=== PATIENT | male | born 1945 | race Caucasian/White ===

== ENCOUNTER 2016-08-05 16:05 | Emergency (ER) | payer MEDICARE, OTHER ==
[~2016-08-05] VITALS: Ht 177.8 cm; Wt 85.0 kg
[~2016-08-05 16:05] MED LIST: AC325T PO; HYDR-3702 PO; IBP800T PO; IBUP-1772 PO; LCT30U PO; OXC5T PO; PHEN100C5 PO; PHN100C PO; TRL10C90 TOP
--- OUTSIDE RECORDS SUMMARY | 2016-08-05 16:08 | XMS REPORT | Continuity of Care Document ---
Author Author [facility] Address Unknown Phone Unavailable Care Team Providers Care Senior Tableau Developer Name Role Phone ANABEL HANDY MD PCP [phone] Insurance Providers Payer Name Policy Number Subscriber Name Relationship Medicare A And B [id number] Kelsey Briseno 18 Self / Same As Patient Advance Directives Directive Response Recorded Date/Time Advanced Directives No 01/01/16 3:33pm Type Durable Power of Bridge Tender 01/01/16 3:33pm Chief Complaint and Reason for Visit Chief Complaint Pain Reason for Visit [id number] Problems Active Problems Medical Problem Onset Date Status Breakthrough seizure 02/10/2015 Acute Dislocated shoulder 10/29/2014 Resolved Head contusion 10/29/2014 Resolved Hill Sachs deformity, left Unknown Acute Laceration of head 10/29/2014 Resolved Noncompliance w/medication treatment due to intermit use of medication ~2014 Acute Seizure disorder 10/29/2014 Chronic Serum ammonia increased Unknown Acute Medications Current Home Medications Medication Dose Units Route Directions Days/Qty Instructions Start Date Phenytoin Sodium Extended 100 Mg 100 Mg ORAL Three Times A Day 02/10 Ibuprofen (Motrin) 600 Mg 600 Mg ORAL Three Times A Day as needed for Pain 0 12/14/15 Acetaminophen (Tylenol) 325 Mg 650 Mg ORAL Every 6 Hours as needed for Pain 0 12/14/15 Lactulose 10 Gm/15 Ml 20 Gm ORAL Daily 1 Take daily. May hold if having > 3 BM in 24 hours. 12/14/15 Trolamine Salicylate (Aspercreme 10%) 85 Gm 1 Applic TOPICAL Four Times Daily 1 12/14/15 Acetaminophen/Hydrocodone Bitart 1 Each 1 Tab ORAL Every 3 Hours as needed for Pain 30 01/01/16 Past Home Medications Medication Directions Ordered Status Phenytoin Sodium Extended 100 Mg Capsule, 200 Mg Oral Twice A Day 10/29/14 Discontinued Phenytoin Sodium (Phenytoin Er) 100 Mg Cap, 100 Mg Oral Every 8 Hrs On Schedule 10/30/14 Discontinued Oxycodone Hcl (Roxicodone) 5 Mg Tab, 5 Mg Oral Every 4HRS as needed for Pain 10/30/14 Discontinued Ibuprofen (Motrin) 800 Mg Tab, 800 Mg Oral Three Times A Day as needed for Pain 10/30/14 Discontinued Phenytoin Sodium Extended 100 Mg Capsule, 100 Mg Oral Three Times A Day 02/10 Discontinued Social History Social History Problem Response Recorded Date/Time Onset Date Status Exposure to occupational hazards No 12/12/2015 2:17am Query Response Start Date Stop Date Smoking Status Current every day smoker Hospital Discharge Instructions No hospital discharge instructions. Plan of Care Discharge Date 01/01/16 5:20pm Disposition 01 HOME OR SELF-CARE Condition at Discharge Stable Prescriptions See Medication Section Referrals ANABEL HANDY MD - Additional Instructions/Education Follow up with your orthopedic doctor - call tomorrow. ED ZAN if any worse. Use sling as most comfortable. [place] as directed. Some of your test results may not be complete prior to your leaving the Emergency Department. The Emergency Department is not authorized to give test results over the phone. Please contact the doctor's office listed in this packet of information for your final results. Follow up with your primary care physician or return to the Emergency Department for worsening or worrisome symptoms. * Emergency Department phone number: [phone], x [phone]* MEDICAL RECORD If you need copies of your X-rays, call [phone]. If you need copies of your medical record, including lab results, a signed authorization for release of records will be required. A telephone call for release of Health Information is not allowed. BILLING Billing can sometimes be confusing and frustrating. To help avoid confusion in the future, please take a moment to acquaint yourself with the billing parties for services. SERVICE BILLING LIBERTARIAN Emergency Room Services [facility] Physician Services [facility] Patients will receive bills for services from the appropriate provider. If you have any questions about your [facility] bill, our staff will be happy to assist you. Please call [phone], and ask for the billing department. THANK YOU for choosing [facility] as your emergency care provider! Care Plan and Goals ~~Discharge Care Plan~~ Problem: Contusion, pain to affected area, fall. Goal: Decreased contusion and pain to affected area. Instructions: Apply ice to area for 15-20 minutes every 3-4 hours. Elevate extremity above the level of the heart, if applicable. Splint area with pillow or blanket to any chest/abdomen injuries. Use incentive spirometry as directed. Take at least 10 deep breaths per hour. Take medication(s) as directed. Follow up with regular physician or specialist as directed. Exercise as tolerated or directed by physician. Functional Status No functional status results. Allergies, Adverse Reactions, Alerts No known allergies. Immunizations No immunization records. Vital Signs Acute Vital Signs Vital Response Date/Time Temperature (Fahrenheit) 98.1 01/01/2016 3:33pm Pulse 80 bpm 01/01/2016 5:19pm Respirations 20 01/01/2016 5:19pm Height 5 ft 10 in Weight 167 lb Body Mass Index 24.0 kg/m^2 Results Laboratory Results Test Name Result Units Flags Reference Collection Date/Time Result Date/ Time Comments White Blood Count 7.37 10^3uL 4.0-11.0 12/13/2015 1:50pm 12/13/2015 1: 59pm Red Blood Count 3.69 10^6uL L 4.50-5.50 12/13/2015 1:50pm 12/13/2015 1: 59pm Hemoglobin 13.3 g/dL L 13.5-17.0 12/13/2015 1:50pm 12/13/2015 1:59pm Hematocrit 36.90 % L 39.00-50.00 12/13/2015 1:50pm 12/13/2015 1:59pm Mean Corpuscular Volume 100 FL 80-100 12/13/2015 1:50pm 12/13/2015 1: 59pm Mean Corpuscular Hemoglobin 36.0 PG H 26.0-34.0 12/13/2015 1:50pm 2015 1:59pm Mean Corpuscular Hemoglobin Concent 36.0 g/dL 31.0-37.0 12/13/2015 1: 50pm 12/13/2015 1:59pm Red Cell Distribution Width 11.8 % 11.8-15.6 12/13/2015 1:50pm 2015 1:59pm Platelet Count 164 10^3uL 150-450 12/13/2015 1:50pm 12/13/2015 1:59pm Mean Platelet Volume 10.1 FL H 6.0-9.5 12/13/2015 1:50pm 12/13/2015 1: 59pm Neutrophils (%) (Auto) 57 % 51-67 12/13/2015 1:50pm 12/13/2015 1:59pm Lymphocytes (%) (Auto) 31 % 20-46 12/13/2015 1:50pm 12/13/2015 1:59pm Monocytes (%) (Auto) 9 % 3-11 12/13/2015 1:50pm 12/13/2015 1:59pm Eosinophils (%) (Auto) 1 % 0-4 12/13/2015 1:50pm 12/13/2015 1:59pm Basophils (%) (Auto) 0 % 0-2 12/13/2015 1:50pm 12/13/2015 1:59pm Neutrophils # (Auto) 4.2 X10^3 12/13/2015 1:50pm 12/13/2015 1:59pm Lymphocytes # (Auto) 2.3 X10^3 12/13/2015 1:50pm 12/13/2015 1:59pm Monocytes # (Auto) 0.7 X10^3 12/13/2015 1:50pm 12/13/2015 1:59pm Eosinophils # (Auto) 0.1 10^3uL 12/13/2015 1:50pm 12/13/2015 1:59pm Basophils # (Auto) 0.0 10^3uL 12/13/2015 1:50pm 12/13/2015 1:59pm Prothrombin Time 13.3 SEC 11.6-14.2 12/11/2015 10:00pm 12/11/2015 10: 39pm Prothromb Time International Ratio 1.0 0.8-1.4 12/11/2015 10:00pm 10:39pm Activated Partial Thromboplast Time 28.9 SEC 24.9-35.9 12/11/2015 10: 00pm 12/11/2015 10:39pm Volume Urine Centrifuged 12 mL 12/12/2015 8:00am 12/12/2015 8:20am Urine Collection Type RANDOM VOIDED 12/12/2015 8:00am 12/12/2015 8: 20am Urine Color Rula 12/12/2015 8:00am 12/12/2015 8:09am Urine Clarity Clear 12/12/2015 8:00am 12/12/2015 8:09am Urine pH 5.0 5.0 - 8.0 12/12/2015 8:00am 12/12/2015 8:09am Urine Specific [place] 1.025 1.005-1.030 12/12/2015 8:00am 2015 8:09am Urine Protein Negative Negative 12/12/2015 8:00am 12/12/2015 8:09am Urine Glucose (UA) Negative Negative 12/12/2015 8:00am 12/12/2015 8: 09am Urine RBC (Auto) Trace-lysed H Negative 12/12/2015 8:00am 12/12/2015 8 :09am Urine Ketones Negative Negative 12/12/2015 8:00am 12/12/2015 8:09am Urine Nitrite Negative Negative 12/12/2015 8:00am 12/12/2015 8:09am Urine Bilirubin 1+ H Negative 12/12/2015 8:00am 12/12/2015 8:09am Ind[place], [place] metabolite and atypical colors may interfere with the interpretation of the Bilirubin reaction. Further testing is required for confirmation. Urine Urobilinogen 1.0 mg/dL 0.2-1.0 12/12/2015 8:00am 12/12/2015 8: 09am Urine Leukocyte Esterase Negative Negative 12/12/2015 8:00am 2015 8:09am Urine RBC 5-10 /HPF H 12/12/2015 8:00am 12/12/2015 8:20am Urine WBC None Seen /HPF 12/12/2015 8:00am 12/12/2015 8:20am Urine Bacteria None Seen /HPF 12/12/2015 8:00am 12/12/2015 8:20am Urine Squamous Epithelial Cells 0-2 /LPF 12/12/2015 8:00am 2015 8:20am Urine Mucus 2+ H 12/12/2015 8:00am 12/12/2015 8:20am Urine Hyaline Casts 2+ /LPF H 12/12/2015 8:00am 12/12/2015 8:20am Sodium Level 145 mmol/L 135-150 12/13/2015 1:50pm 12/13/2015 2:13pm Potassium Level 3.6 mmol/L 3.5-5.1 12/13/2015 1:50pm 12/13/2015 2:13pm Chloride Level 111 mmol/L H 98-108 12/13/2015 1:50pm 12/13/2015 2:13pm Carbon Dioxide Level 23 mmol/L -12/13/2015 1:50pm 12/13/2015 2: 13pm Anion Gap 14.8 MEQ/L 3-15 12/13/2015 1:50pm 12/13/2015 2:13pm Blood Urea Nitrogen 15 mg/dL 7-18 12/13/2015 1:50pm 12/13/2015 2:13pm Creatinine 0.67 mg/dL L 0.8-1.5 12/13/2015 1:50pm 12/13/2015 2:13pm BUN/Creatinine Ratio 20 10-20 12/11/2015 10:00pm 12/11/2015 10:43pm Estimat Glomerular Filtration Rate 142.7 12/13/2015 1:50pm 2015 2:13pm Estimated GFR (Non- 118.0 12/13/2015 1:50pm 2015 2:13pm Glucose Level 130 mg/dL H 70-110 12/13/2015 1:50pm 12/13/2015 2:13pm Calculated Osmolality 283 mosm/L 280-300 12/11/2015 10:00pm 12/11/2015 10:43pm Calcium Level 9.0 mg/dL 8.8-10.8 12/13/2015 1:50pm 12/13/2015 2:13pm Calcium/Ionized Calcium Ratio 4.0 mg/dL 3.8-4.6 12/11/2015 10:00pm 10:43pm Phosphorus Level 3.7 mg/dL # 2.4-4.9 12/13/2015 1:50pm 12/13/2015 2:13pm Total Bilirubin 1.0 mg/dL 0.1-1.0 12/11/2015 10:00pm 12/11/2015 10: 43pm Alkaline Phosphatase 159 U/L H 38-126 12/11/2015 10:00pm 12/11/2015 10: 43pm Aspartate Amino Transf (AST/SGOT) 103 U/L H 15-37 12/11/2015 10:00pm 10:43pm Alanine Aminotransferase (ALT/SGPT) 90 U/L H 30-65 12/11/2015 10:00pm 10:43pm Total Creatine Kinase 156 U/L 55-170 12/11/2015 10:00pm 12/11/2015 10: 43pm Creatine Kinase MB 2.0 ng/mL 0.0-6.0 12/11/2015 10:00pm 12/11/2015 10: 52pm Troponin I < 0.012 ng/mL 0.010-0.080 12/11/2015 10:00pm 12/11/2015 10: 52pm Total Protein 7.8 g/dL 6.4-8.5 12/11/2015 10:00pm 12/11/2015 10:43pm Albumin 3.9 g/dL 3.4-5.0 12/14/2015 1:45pm 12/14/2015 2:31pm Albumin/Globulin Ratio 1.108 1.1-1.8 12/11/2015 10:00pm 12/11/2015 10 :43pm Ammonia 34.6 umol/L H 9.0-30.0 12/12/2015 5:22am 12/12/2015 6:54am C-Reactive Protein 1.40 mg/dL H 0.0-0.9 12/13/2015 1:50pm 12/13/2015 2: 13pm Phenytoin (Dilantin) Level 10.8 mcg/mL 10.0-20.0 12/11/2015 10:00pm 10:43pm Serum Alcohol < 10.0 mg/dL L 10-80 12/11/2015 10:00pm 12/11/2015 10: 59pm Procedures Procedure Status Date Provider(s) REPOSITION RIGHT SHOULDER JOINT, EXTERNAL APPROACH Completed 12/14/15 GARRETT GEE MD Encounters Encounter Location Arrival/Admit Date Discharge/Depart Date Attending Provider Registered Emergency Room [facility] 01/01/16 3:19pm THANH MARTINS MD Discharged Inpatient [facility] 12/12/15 1:10am 12/14/15 6:00pm GARRETT GEE MD Registered Clinic [facility] 12/11/15 9:20pm BROOKLYN DANIELSON MD Recent Diagnosis
[2016-08-05] MEDS ORDERED: fentaNYL 100 MCG/2 ML VIAL IV ONE ×2 (16:25→16:55)
[2016-08-05] MEDS ORDERED: ONDANSETRON 2 MG/ML (Z0FRAN) 2 ML VIAL IV ONE (16:25)
[2016-08-05] MEDS ORDERED: KETOROLAC 30 MG/ML (TORADOL) 1 ML VIAL IV ONE (16:25)
[2016-08-05] MEDS ORDERED: SODIUM CHLORIDE FLUSH 3 ML SYR IV ONE (16:30)
[2016-08-05] MEDS: SODIUM CHLORIDE FLUSH 10 ML SYR IV PRN ×2 (16:30→17:02)
[2016-08-05] MEDS ORDERED: MIDAZOLAM 2 MG/2 ML (VERSED) VIAL IV ONE (16:55)
--- NOTE | 2016-08-05 17:02 | Diagnostic Imaging Report ---
INDICATION: Right shoulder injury with dislocation. DISCUSSION: Three views of the right shoulder were obtained, comparison 12/14/2015. Anterior right shoulder dislocation is present. No acute fracture. The acromioclavicular joint is maintained as is the coracoclavicular joint. Postoperative changes are again noted within the right humeral head. Soft tissues are unremarkable. IMPRESSION: 1. Anterior right shoulder dislocation. Dictated by: Dictated on workstation # [id number]
--- NOTE | 2016-08-05 17:06 | NUR ---
VERSED 2MG IVP GIVEN AT THIS TIME. PT WAS PLACED ON RIVET STICKER AND O2 2L/NC. DR DAVILA AND NURSE WITH PT.
--- NOTE | 2016-08-05 17:15 | NUR ---
DR DAVILA ATTEMPTED TO REDUCE RT SHOULDER DISLOCATION WITHOUT SUCCESS. PT WAS MOANING WITH MANIPULATION OF RT ARM DESPITE SEDATION. PT AWAKE INTERMITTENTLY DURING PROCESS.
--- NOTE | 2016-08-05 17:20 | NUR ---
TERRI BECKMAN PAGED PER DR DAVILA REQUEST IN ORDER TO ABLE TO ATTEMPT MORE VIGOROUS REDUCTION OF RT SHOULDER.
--- NOTE | 2016-08-05 17:23 | NUR ---
TERRI BECKMAN SPEAKS WITH REGARDING PT.
--- NOTE | 2016-08-05 17:27 | NUR ---
PT RESTS WITH EYES CLOSED, AWAKES INTERMITTENTLY. O2 2L/NC WITH SATS 94%. BP 108/68, P 71, R 15. NURSE AT BEDSIDE.
[2016-08-05] MEDS ORDERED: MIDAZOLAM 2 MG/2 ML (VERSED) VIAL ONE (17:29)
[2016-08-05] MEDS ORDERED: PROPOFOL 20 ML IV ONE ×2 (17:29)
[2016-08-05] MEDS ORDERED: ALFENTANIL 1,000 MCG/2 ML AMP IV ONE (17:29)
--- NOTE | 2016-08-05 17:40 | NUR ---
TERRI SVP BUSINESS DEVELOPMENT ADMINISTERED MEDS, CLOSED REDUCTION PERFORMED BY TERRI HEAD AND CAMRON RN. AFTER SEVERAL MINUTES, RT SHOULDER WAS ABLE TO BE REDUCED.
--- NOTE | 2016-08-05 17:50 | NUR ---
SHOULDER IMMOBILIZER APPLIED TO PT POST REDUCTION, RADIOLOGY NOTIFIED TO REPEAT XRAYS. Addendum: 08/05/16 at 1753 by [id number] PT IS AWAKE BUT SLEEPY, RESPONDS VERBALLY TO STAFF. Addendum: 08/17/16 at 1028 by [id number] PATIENT'S OWN SHOULDER IMMOBILIZER FROM HOME WAS APPLIED AFTER REDUCTION.
[2016-08-05] MEDS ORDERED: BACITRACIN OINTMENT 0.9 GM PACKET TOP ONE (18:15)
--- NOTE | 2016-08-05 18:38 | Diagnostic Imaging Report ---
Indication: Followup right shoulder dislocation. Discussion: Two views of the right shoulder were obtained, comparison earlier same date. Interval reduction of previous dislocation. Large Hill-Sachs deformity is now present. Postoperative changes of the humeral head are stable. Soft tissues are unremarkable. Impression: 1. Interval reduction of right shoulder dislocation. Large Hill-Sachs deformity present. Dictated by: Dictated on workstation # [id number]
[2016-08-05 18:56] VITALS: BP 122/80
--- NOTE | 2016-08-06 10:45 | PAIN MANAGEMENT ---
Date of note: 08/05/2016 PROCEDURE: Anesthesia for right shoulder reduction. This is a 89-year-old male patient under the care of Dr. Giacomo Metzger in the ER. Anesthesia was consulted for the purposes of sedation for relocation of right shoulder. The patient presents with right dislocated shoulder. He has had multiple dislocations in the past. Sometimes he is able to relocate those at home, this time he was unable to do that. He comes in and the ER was unsuccessful in relocating the shoulder with light sedation. Anesthesia was brought in. Vital signs were stable 120s/60s. Oxygen saturations were 94% on 2 liters. Informed consent was obtained prior to anesthesia's arrival. Consent form was reviewed. The patient gave verbal consent at the bedside. Medications given: Propofol 60 mg, Alfenta 600 mcg, it was a mix of 1000 mcg and 10 mL of Propofol a total of 60 mL of the mixture was given. Shoulder was relocated successfully. The patient arouses easily after the procedure was done. Vital remain stable. Pressures are low 100s/60s. The patient is to be released per ER protocol. Anesthesia was released per Dr. Metzger. Patient's vital signs remain stable.
== END 2016-08-05 18:46 | disposition home or self-care (01) ==
LOC: ED 16:11
DX: M24.411 Recurrent dislocation, right shoulder (principal); X50.9XXA Other and unspecified overexertion or strenuous movements or postures, initial encounter; Y93.64 Activity, baseball; Y92.830 Public park as the place of occurrence of the external cause
CPT/HCPCS: 73030; 96374; 96375; 99284; A9270; J1885; J2250; J2405; J3010; 23655; 99283

== ENCOUNTER 2016-08-08 04:39 | Emergency (ER) | payer MEDICARE, OTHER ==
[~2016-08-08] VITALS: Ht 177.8 cm; Wt 66.5 kg
[2016-08-08] MEDS ORDERED: fentaNYL 100 MCG/2 ML VIAL IV ONE (05:15)
[2016-08-08] MEDS ORDERED: MIDAZOLAM 2 MG/2 ML (VERSED) VIAL IV ONE ×2 (05:15→06:35)
--- NOTE | 2016-08-08 05:45 | NUR ---
medical technologist prn applied. O2 applied via nc at 4L. Dr. Blue at bedside for conscious sedation. Medications given IV.
--- NOTE | 2016-08-08 06:00 | NUR ---
Dr. Blue continues to reduce right shoulder without success. New order received for versed 1 mg IV.
--- NOTE | 2016-08-08 06:05 | NUR ---
Versed [address] Blue continues to reduce right shoulder dislocation without success.
--- NOTE | 2016-08-08 06:22 | NUR ---
ANESTHESIA NOTIFIED BY RAILROAD BRAKEMAN AND TERRI RETURNED CALL
[2016-08-08] MEDS ORDERED: PROPOFOL 20 ML IV ONE ×2 (06:42)
[2016-08-08] MEDS ORDERED: ALFENTANIL 1,000 MCG/2 ML AMP IV ONE (06:42)
--- NOTE | 2016-08-08 06:46 | NUR ---
Report given to Alysha HUSTON.
--- NOTE | 2016-08-08 07:39 | NUR ---
shoulder placed back in by er md at approx 0700 with anesth present, waiting on radiology report, pt alert and oriented, requesting to go home.
--- NOTE | 2016-08-08 07:40 | NUR ---
er dr requests a 30 minute monitoring for this pt,
--- NOTE | 2016-08-08 08:14 | NUR ---
pt insists on leaving, yells out at 0800, call light at his side. in to see pt, pt refuses to stay for x-ray to be read
[2016-08-08 08:15] VITALS: BP 152/86
--- NOTE | 2016-08-08 08:19 | NUR ---
pt has his own shoulder immobilizer which was placed on him prior to discharge
--- NOTE | 2016-08-08 08:20 | NUR ---
pt discharged at 0810, unable to change discharge time
== END 2016-08-08 08:19 | disposition home or self-care (01) ==
LOC: ED 04:43
DX: M24.411 Recurrent dislocation, right shoulder (principal); X50.9XXA Other and unspecified overexertion or strenuous movements or postures, initial encounter; Y93.89 Activity, other specified; Y92.009 Unspecified place in unspecified non-institutional (private) residence as the place of occurrence of the external cause; Z91.19 Patient's noncompliance with other medical treatment and regimen
CPT/HCPCS: 73030; 96374; 99284; J2250; J3010; J7030; 99283

== ENCOUNTER 2016-10-12 04:05 | Emergency (ER) | payer MEDICARE, OTHER ==
[~2016-10-12] VITALS: Ht 177.8 cm; Wt 79.5 kg
[2016-10-12] MEDS ORDERED: MIDAZOLAM 2 MG/2 ML (VERSED) VIAL IV ONE (05:00)
[2016-10-12] MEDS ORDERED: fentaNYL 100 MCG/2 ML VIAL IV ONE (05:00)
[2016-10-12 05:02] LABS: BASOPHILS % (AUTO) 0 % (0-2); EOSINOPHILS # (AUTO) 0.1 10^3uL; EOSINOPHILS % (AUTO) 1 % (0-4); MEAN PLATELET VOLUME 10.1 FL (6.0-9.5); MONOCYTES % (AUTO) 8 % (3-11); NEUTROPHILS # (AUTO) 10.1 X10^3; NEUTROPHILS % (AUTO) 83 % (51-67); PLATELET COUNT 181 10^3uL (150-450); WHITE BLOOD COUNT 12.18 10^3uL (4.0-11.0)
--- NOTE | 2016-10-12 05:10 | NUR ---
Dr. Metzger at bedside performing reduction of right shoulder dislocation. Procedure unsuccessful. Vital signs repeated Q5min.
--- NOTE | 2016-10-12 05:15 | NUR ---
O2 sat decreased to 89% after medications administered. O2 applied via nc at 4L.
--- NOTE | 2016-10-12 05:20 | NUR ---
O2 sat 97% on 4 L. O2 decreased to 2 L per nc.
[2016-10-12 05:22] LABS: MEAN CORPUSCULAR HGB CONC 36.8 g/dL (31.0-37.0); MEAN CORPUSCULAR VOLUME 101 FL (80-100)
--- NOTE | 2016-10-12 05:23 | NUR ---
Sandeep BECKMAN notified of deep sedation for right shoulder reduction.
[2016-10-12 05:30] LABS: ALBUMIN 4.2 g/dL (3.4-5.0); ALKALINE PHOSPHATASE 212 U/L (38-126); ANION GAP 17.5 MEQ/L (3-15); BUN/CREATININE RATIO 29 (10-20); CALCULATED IONIZED CALCIUM 3.9 mg/dL (3.8-4.6); TOTAL PROTEIN 8.8 g/dL (6.4-8.5)
--- NOTE | 2016-10-12 05:43 | NUR ---
JOHANNE BECKMAN HERE AND DR DAVILA AND GABRIEL CHANG RN IN PT ROOM.
--- NOTE | 2016-10-12 05:45 | NUR ---
Sandeep BECKMAN and Dr. Metzger at bedside performing reduction of right shoulder with sedation. Procedure successful and pt's sling reapplied to right arm. Addendum: 10/12/16 at 0609 by [id number] Sandeep BECKMAN administering propofol for shoulder reduction.
--- NOTE | 2016-10-12 05:50 | NUR ---
Radiology at bedside.
--- NOTE | 2016-10-12 05:55 | NUR ---
Pt awake and oriented x's 3 at this time.
--- NOTE | 2016-10-12 05:58 | NUR ---
RIGHT SHOULDER PUT IN PLACE BE JOHANNE HEAD COMPLETED HIS PAPERWORK 2ND X RAY COMPLETED SHOWING SHOULDER IN PLACE
--- NOTE | 2016-10-12 06:00 | NUR ---
O2 sat 96% on 2 L nc. O2 discontinued at this time.
--- NOTE | 2016-10-12 06:25 | NUR ---
Pt sitting on side of bed. Waiting for family to pick him up. Pt denies pain at this time or any needs.
[2016-10-12 06:38] VITALS: BP 138/79
--- NOTE | 2016-10-12 07:17 | Diagnostic Imaging Report ---
Right shoulder. INDICATION: Shoulder dislocation. FINDINGS: The exam performed earlier today noted that the humeral head was dislocated anteriorly and inferiorly with respect to the glenoid. In the interval since the previous exam, the dislocation appears to have been reduced. There is no acute fracture identified. The deformity of the greater tuberosity of humerus seen previously is again evident and no different. The soft tissues are unremarkable. IMPRESSION: The dislocation of the glenohumeral joint noted previously has been reduced. There is no acute bony abnormality identified. Dictated by: Dictated on workstation # [id number]
--- NOTE | 2016-10-12 07:20 | Diagnostic Imaging Report ---
Right shoulder at 434 hours. INDICATION: Injury, shoulder pain. FINDINGS: As noted on the prior exam of 08/08/16, there has been recurrent dislocation of the glenohumeral joint. Humeral head is displaced anterior and inferiorly with respect to the glenoid. There is no fracture identified. The surgical studs overlying the glenoid seen previously are again visualized and unchanged. The soft tissues are unremarkable for an acute abnormality. IMPRESSION: There has been a recurrent anterior inferior dislocation humeral head with respect to the glenoid. There is no acute bony injury identified otherwise, but followup exam after reduction would be recommended. Dictated by: Dictated on workstation # [id number]
== END 2016-10-12 06:50 | disposition home or self-care (01) ==
LOC: ED 04:07
DX: G40.909 Epilepsy, unspecified, not intractable, without status epilepticus (principal); S43.014A Anterior dislocation of right humerus, initial encounter; S43.034A Inferior dislocation of right humerus, initial encounter; W19.XXXA Unspecified fall, initial encounter; Y93.89 Activity, other specified; Y92.009 Unspecified place in unspecified non-institutional (private) residence as the place of occurrence of the external cause; F17.210 Nicotine dependence, cigarettes, uncomplicated; J44.9 Chronic obstructive pulmonary disease, unspecified; Z79.899 Other long term (current) drug therapy
CPT/HCPCS: 36415; 73030; 80053; 80185; 82140; 84443; 84484; 85025; 86140; 99285; G0480; J2250; J3010; 23655; 80320; 99283

== ENCOUNTER → 2016-10-12 | Outpatient (CLI) | payer MEDICARE, OTHER ==
[~2016-10-12] MED LIST changes: +LACT10SO6 PO; -LCT30U PO
== END ==
LOC: EMS 04:05
PROVIDERS: ATTEND Family Medicine
DX: G40.89 Other seizures (principal)